=== PATIENT | male | born 1935 | race Caucasian/White ===

== ENCOUNTER 2024-12-25 12:20 | Emergency (ER) | payer MEDICARE, OTHER, SELFPAY ==
[2024-12-25 13:01] VITALS: BP 119/72; PULSE 72; TEMP 36.6; O2SAT 96
[2024-12-25] MEDS: saline nasal spray 44mL Btl 1 SPRAY NASAL (13:01)
[2024-12-25 13:13] LABS: Hematocrit 50.1 % (37-53); Hemoglobin 15.90 g/dL (11.27-16.99); Mean Corpuscular HGB Conc 31.7 g/dL (30-55); Mean Corpuscular Hemoglobin 30.2 pg (27-33); Mean Corpuscular Volume 95.1 fl (82-101); Nucleated Red Blood Cells % 0 %; Platelet Count 197 10^3/cmm (157-399); Red Blood Count 5.27 10^6/uL (3.85-5.65); White Blood Count 12.79 10^3/uL (3.29-11.43)
[2024-12-25 13:45] VITALS: BP 166/105; PULSE 83; O2SAT 94
--- NOTE | 2024-12-25 13:46 | PC.NURSE ---
Charge for two rhino rockets placed by Dr. Parra.
--- NOTE | 2024-12-25 16:51 | ED_ITS ---
HPI - Epistaxis 2 General: Chief complaint: Epistaxis Stated complaint: nose bleed Time Seen by Provider: 12/25/24 12:36 History of Present Illness: 89-year-old male presents emergency room . No history of trauma to the nose. with epistaxis. Began around 8:00's morning is continually bleeding since he has a history of previous epistaxis he is on Xarelto for atrial fibrillation Associated symptoms: Deny fever(s) Related Data Previous Rx's ?Medication ?Instructions ?Recorded amoxicillin 875 mg-potassium 1 tab PO BID #14 tabs clavulanate 125 mg tablet Allergies Allergy/AdvReac Type Severity Reaction Status Date / Time amiodarone Allergy Unknown Verified 12/25/24 13:04 Review of Systems 2 Const: Denies: fever(s) or chills Card: Denies: chest pain Resp: Denies: dyspnea GI: Denies: abdominal pain : Denies: dysuria, urinary frequency or urinary urgency Musc: Denies: neck pain or back pain Skin/Breast: Denies: rash Physical Exam 2 Const: COMMON NORMALS: no acute distress GENERAL APPEARANCE: cooperative and comfortable ORIENTATION/CONSCIOUSNESS: Yes awake, Yes oriented to person, Yes oriented to place and Yes oriented to time HENMT: COMMON NORMALS: normocephalic, atraumatic and hearing grossly normal bilaterally HEAD & SCALP: normocephalic and atraumatic OTHER: Bleeding from the left nare unable to visualize source. Resp: COMMON NORMALS: normal respiratory effort, No retractions, No use of accessory muscles and clear to auscultation bilaterally AUSCULTATION: clear to auscultation bilaterally Cardio: COMMON NORMALS: regular rate, regular rhythm and No murmurs present (Cardio) RATE: regular rate RHYTHM: regular rhythm Extremity: COMMON NORMALS: normal to inspection, capillary refill normal, no clubbing, cyanosis or edema, no calf tenderness and no pedal edema Neuro: SENSORIUM/ORIENTATION: Yes oriented to person, Yes oriented to place and Yes oriented to time Skin: COMMON NORMALS: no rashes or lesions noted GENERAL SKIN EXAM: no rashes or lesions noted Procedures Epistaxis Control Time Out Performed: Yes Nostril: bilateral Nose Prepped With: oxymetazoline Direct Inspection: unable to visualize Clots Removed by: blowing nose Cautery Used: none Device Inserted: hemostatic balloon Patient Tolerated Procedure: well Course 2 Vital Signs: Vital signs: Vital Signs Temperature 97.8 F 12/25/24 13:01 Pulse Rate 83 12/25/24 13:45 Blood Pressure 166/105 12/25/24 13:45 Pulse Oximetry 94 12/25/24 13:45 Oxygen Delivery Me thod Room Air 12/25/24 13:01 MDM - Epistaxis Medical Decision Making Rhino Rocket's applied bilaterally patient tolerated well will discharge patient home and have him follow-up with ENT he is from outside of this area. He is visiting and surgery will have case management try to get him set up with Dr. Small. Medical Records I reviewed the patient's medical records. Lab Data I reviewed the patient's lab results. 12/25/24 12:57 Laboratory Results WBC 12.79 10^3/uL (3.29-11.43) H 12/25/24 12:57 RBC 5.27 10^6/uL (3.85-5.65) 12/25/24 12:57 Hgb 15.90 g/dL (11.27-16.99) 12/25/24 12:57 Hct 50.1 % (37-53) 12/25/24 12:57 MCV 95.1 fl (82-101) 12/25/24 12:57 MCH 30.2 pg (27-33) 12/25/24 12:57 MCHC 31.7 g/dL (30-55) 12/25/24 12:57 RDW 13.6 % (12.1-15.1) 12/25/24 12:57 Plt Count 197 10^3/cmm (157-399) 12/25/24 12:57 MPV 9.8 fL (7.4-10.4) 12/25/24 12:57 Neut % (Auto) 67.4 % 12/25/24 12:57 Lymph % (Auto) 21.3 % 12/25/24 12:57 [place] % (Auto) 9.1 % 12/25/24 12:57 Eos % (Auto) 1.0 % 12/25/24 12:57 Baso % (Auto) 0.2 % 12/25/24 12:57 Neut # (Auto) 8.62 10^3/uL (1.8-7.7) H 12/25/24 12:57 Lymph # (Auto) 2.7 10^3/uL (0.8-4.8) 12/25/24 12:57 [place] # (Auto) 1.2 10^3/uL (0.2-0.9) H 12/25/24 12:57 Eos # (Auto) 0.1 10^3/uL (0.0-0.8) 12/25/24 12:57 Baso # (Auto) 0.0 10^3/uL (0.0-0.1) 12/25/24 12:57 Nucleated RBC % (auto) 0 % 12/25/24 12:57 Nucleated RBCs # 0.0 /100WBC 12/25/24 12:57 No radiology studies performed this visit Discharge Plan Discharge Patient Disposition: Home Clinical Impression: Epistaxis Condition: Stable Prescriptions: New amoxicillin-pot clavulanate 875-125 mg tablet 1 tab PO BID Qty: 14 0RF Discharge Orders: Discharge ED (Routine); Ordered 12/25/24 Ordered By: Raymundo Parra Discharge Diet: Usual diet Discharge Activity: Increase activity as tolerated Patient Instructions: Epistaxis - Adult, Opioid Safety, Pain Management, Patient Portal & Madhav Instructions Activity Restrictions/Additional Instructions: Thank you for choosing [facility] for your healthcare needs today. It is very important that you follow up as instructed or that you return to the Emergency Department should you have concerns or if your condition changes or worsens in any way. Emergency department visits are focused on emergent conditions, in some cases you may require further evaluation on an outpatient basis. You were seen with a nosebleed (epistaxis). A nasal pack was placed case management make arrangements for you to follow-up with Dr. Arriola in the office. When you start on the oral antibiotics 1 pill twice a day. Contact (Please note that included in your discharge packet is information concerning opioid safety and pain management. This information is given to all patients were discharged from the ER regardless of their discharge diagnosis or the medicines they usually take or are prescribed.) Print Language: Citizen Of [place] Coding Level of Care Code ED Biometrician for Kaveh Leal
--- NOTE | 2024-12-26 08:55 | DCPLANNER ---
faxed ent referral to dr mclean office
== END 2024-12-25 13:46 | disposition home or self-care (01) ==
PROVIDERS: Emergency Provider Family Medicine
DX: R04.0 Epistaxis (principal)
CPT/HCPCS: 36415; 85025; 99283; J9999